=== PATIENT | male | born 1955 | race Caucasian/White ===

== ENCOUNTER → 2020-09-12 15:41 | Outpatient (CLI) | payer MEDICARE, SELFPAY ==
--- NOTE | 2020-09-12 15:56 | XR_ITS ---
PROCEDURE: XR LUMBAR SPINE MIN 4V CLINICAL INDICATION: RT SIDED ABD PAIN, RT SIDED THORACIC BACK PAIN COMPARISON: No exams were available for comparison FINDINGS: Mild lumbar curvature convex right. No acute fracture or dislocation. Mild multilevel degenerative disc disease T12-S1. no lytic or blastic change. IMPRESSION: Mild multilevel lumbar spondylosis with mild scoliosis Dictated by: Fredy Cortez MD 09/12/2020 16:38 Fredy Cortez MD in [place] 09/12/2020 16:38
== END ==
PROVIDERS: Visit Provider Family Medicine
DX: R10.9 Unspecified abdominal pain (principal); M54.6 Pain in thoracic spine
CPT/HCPCS: 72110